=== PATIENT | female | born 1995 | race American Indian/Alaskan Native ===

== ENCOUNTER 2020-10-27 21:01 | Outpatient (CLI) | payer SELFPAY ==
[2020-10-27 21:45] VITALS: BP 106/64
[2020-10-27] MEDS ORDERED: LACTATED RINGERS 1,000 ML IV ONE (22:43)
[2020-10-27 22:58] LABS: Bacteria,Urine 1+ /HPF (Negative); Bilirubin,Urine NEG (Negative); Blood,Urine SM (Negative); Color,Urine Yellow (Yellow); Mucus,Urine FEW /HPF; Urobilinogen,Urine < 2.0 mg/dL (<2.0); WBC,Urine > 182.0 /HPF (0.0-6.0)
[2020-10-27] MEDS ORDERED: ACETAMINOPHEN 500 MG TAB PO ONE (23:05)
[2020-10-27 23:10] LABS: Amphetamine Screen,Urine Negative; Benzodiazepines Screen,Urine Negative; Cocaine Screen,Urine Negative; Methadone Screen,Urine Negative; Opiate Screen,Urine Negative
[2020-10-27 23:24] LABS: Cannabinoid Screen,Urine Positive
[2020-10-28 00:36] LABS: Basophils % (Auto) 0.2 % (0.0-1.8); Eosinophils % (Auto) 0.2 % (0.0-4.3); Hemoglobin 11.2 gm/dl (10.1-14.3); Lymphocytes # (Auto) 2.1 K/mm3 (1.2-5.4); Mean Corpuscular HGB Conc 34 % (30-34); Mean Corpuscular Volume 100 fl (79-97); Monocytes # (Auto) 0.4 K/mm3 (0.0-0.8); Monocytes % (Auto) 5.2 % (0.0-7.3); Platelet Count 294 K/mm3 (140-440); Red Blood Count 3.31 M/mm3 (3.65-5.03); Red Cell Distribution Width 13.7 % (13.2-15.2)
[2020-10-28] MEDS ORDERED: D5W/LACTATED RINGERS 1,000 ML IV SCH (01:00)
[2020-10-28] MEDS ORDERED: FLUCONAZOLE 200 MG TAB PO SCH (01:30)
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
== END 2020-10-28 02:15 | disposition home or self-care (01) ==
LOC: TRG 21:01 → APU 21:03 → TRG 10-28 02:15
PROVIDERS: ATTEND Obstetrics & Gynecology
DX: O26.892 Other specified pregnancy related conditions, second trimester (principal); R10.30 Lower abdominal pain, unspecified; M54.9 Dorsalgia, unspecified; O47.02 False labor before 37 completed weeks of gestation, second trimester; O99.332 Smoking (tobacco) complicating pregnancy, second trimester; V49.9XXA Car occupant (driver) (passenger) injured in unspecified traffic accident, initial encounter; Y93.89 Activity, other specified; Y92.89 Other specified places as the place of occurrence of the external cause; Y99.8 Other external cause status; Z3A.21 21 weeks gestation of pregnancy
CPT/HCPCS: 36415; 59025; 76815; 80307; 81001; 85025; 86850; 86900; 86901; 96360; 96361; 96365; J0690; J7120; J7121